=== PATIENT | female | born 1995 | race Caucasian/White ===

== ENCOUNTER 2017-03-19 15:23 | Emergency (ER) | payer BC ==
[2017-03-19 16:09] VITALS: BP 118/65
--- NOTE | 2017-03-21 07:51 | ER ---
DATE SEEN: 03/19/2017 TIME SEEN: The patient was seen at 1530 hours. HISTORY OF PRESENT ILLNESS: The patient is walking. Her legs locked, as they do 2 to 3 times a day, and she fell forward. She was assisting a younger child while swinging. She went "into an underdog position" and after going through this and fell down forward. No loss of consciousness. No trauma to her upper or lower extremities. Fell onto her abdomen. She is a 2, para 1-0-0-1. Last menstrual period in mid October, dates undetermined and feels slight "tightening" of her left lower quadrant. Not passed urine. No history of complications with this . She felt movement 10 minutes ago, approximately 3 to 4 weeks ago, experienced quickening. The patient states that she does not usually fall with walking when her knees lock. (Perhaps the locking occurred as she moved in extension and pushes on through as her child went up over her head, and she went underneath the swing of the child. PAST MEDICAL HISTORY: No allergies. No diabetes. She has vitamins. No asthma. No previous surgery. . Nonsmoker. Does not use alcohol or drink or smoke cigarettes. FAMILY HISTORY: Noncontributory. REVIEW OF SYSTEMS: Otherwise, review of system is negative. PHYSICAL EXAMINATION: VITAL SIGNS: Blood pressure 142/75, heart rate 97, respirations 20, oxygen saturation 100%, and temperature 36.8 degrees centigrade. CONSTITUTIONAL: Alert without pain. Appropriate weight, woman, who is with her . HEENT: PERRLA intact. Pharynx without abnormality. NECK: No thyromegaly or masses in the neck. No cervical adenopathy. No neck tenderness. LUNGS: Clear to auscultation without rales, rhonchi, or wheezes. HEART: S1 and S2. No murmur. ABDOMEN: Soft. No guarding. No abdominal discomfort. : The fundus of the uterus is 18 cm above the symphysis, and uterus is nontender to palpation, more on the right than left. Abdominal discomfort absent. PELVIC: Not performed. LOWER EXTREMITIES: Without edema. Deep tendon reflexes upper extremities 1+, absent knee jerks and ankle jerks. Cranial nerves II through XII intact. Oriented x3. Gait appropriate. Strength appropriate. heart tones obtained by the nurse at 150 in the right lower quadrant. No movement palpated. I spent about 2 minutes palpating for movement. ASSESSMENT: 1. No suggestion of disruption of the and uterine placental circulation. 2. Fall. 3. Uncomplicated previous . 4. No suggestion of demise or compromise of the fetus presently. Plan: Follow up with doctor in 5 to 7 days, earlier if worse. 5. History of locking knees. The patient will do well to walk with more flexion in her knees, so she does not have this problem with locking. /[id number] VLADIMIR/CHEOL
== END 2017-03-19 16:02 | disposition home or self-care (01) ==
LOC: EDSEX → FB.ED 15:23
DX: O99.89 Other specified diseases and conditions complicating pregnancy, childbirth and the puerperium (principal); R10.9 Unspecified abdominal pain; Z3A.19 19 weeks gestation of pregnancy; W19.XXXA Unspecified fall, initial encounter
CPT/HCPCS: 99283